=== PATIENT | male | born 1995 | race African-American/Black ===

== ENCOUNTER 2018-11-30 09:47 | Emergency (ER) | payer MEDICAID ==
[~2018-11-30] VITALS: Ht 190.5 cm; Wt 86.2 kg
[2018-11-30 10:04] VITALS: BP 116/68
[2018-11-30] MEDS ORDERED: KETOROLAC TROMETH 30 MG/ML 1ML VIAL IV ONE (10:15)
[2018-11-30] MEDS ORDERED: methylPREDNISolone SOD SUCC 125 MG/2 ML VL IV ONE (10:15)
[2018-11-30] MEDS ORDERED: CLINDAMYCIN 900MG IV 50 ML IV ONE (10:15)
[2018-11-30] MEDS ORDERED: cefTRIAXone 1GM/50ML D5W 50 ML IV ONE (10:15)
[2018-11-30] MEDS ORDERED: SODIUM CHLORIDE 0.9% 1,000 ML IV ONE (10:30)
== END 2018-11-30 11:27 | disposition home or self-care (01) ==
LOC: ER 09:56
DX: J03.00 Acute streptococcal tonsillitis, unspecified (principal)
CPT/HCPCS: 87880; 96365; 96367; 96375; 99283; J0696; J1885; J2930; J3490; J7030

== ENCOUNTER 2018-12-02 17:22 | Emergency (ER) | payer MEDICAID ==
[~2018-12-02] VITALS: Ht 190.5 cm; Wt 86.2 kg
[2018-12-02 17:31] VITALS: BP 116/64
[2018-12-02] MEDS ORDERED: ALBUTEROL SULF 2.5 MG/0.5ML(0.5%) NEB SOLN NEB ONE ×2 (17:45→19:15)
[2018-12-02] MEDS ORDERED: IPRATROPIUM BROM 0.5 MG/2.5ML INH SOL NEB ONE ×2 (17:45→19:15)
[2018-12-02] MEDS ORDERED: methylPREDNISolone SOD SUCC 125 MG/2 ML VL IM ONE (19:15)
[2018-12-02] MEDS ORDERED: IPRATROPIUM BROM 0.5 MG/2.5ML INH SOL ONE (19:19)
[2018-12-02] MEDS ORDERED: ALBUTEROL SULF 2.5 MG/0.5ML(0.5%) NEB SOLN ONE (19:19)
== END 2018-12-02 20:57 | disposition home or self-care (01) ==
LOC: ER 17:25
DX: J45.909 Unspecified asthma, uncomplicated (principal)
CPT/HCPCS: 71046; 94640; 96372; 99284; J2930; J7611; J7644; 94644